=== PATIENT | female | born 1985 | race Caucasian/White ===

== ENCOUNTER 2017-01-28 19:12 | Emergency (ER) | payer BC ==
--- NOTE | 2017-01-28 20:57 | ERNOTE ---
ER Female HPI Date of Service: 01/28/17 Stated Complaint: HEAVY VAGINAL BLEEDING Presenting Symptoms: vaginal bleeding Time Seen by Provider: 01/28/17 20:18 Source: patient Exam Limitations: no limitations Immunizations: IMMUNIZATION HX Immunizations Up to Date Yes History of Influenza Vaccine Yes Hx Pneumococcal Vaccination No Allergies/Adverse Reactions: Allergies ciprofloxacin [From Cipro] Allergy (Verified 01/28/17 19:56) Itching ciprofloxacin HCl [From Cipro] Allergy (Verified 01/28/17 19:56) lactose Adverse Reaction (Verified 01/28/17 19:56) Home Medications: HOME MEDICATIONS Pnv95/Iron Fum/Folic Acid [ Caplet] 1 each PO DAILY 12/30/15 [Last Taken Unknown] - History of Present Illness Narrative: Pt. comes in with c/o heavy vaginal bleeding since yesterday. Pt. states taht she has been bleeding through a tampon and a pad every hour except the last two hours she has been bleeding through a tampon every 15 minutes. Pt. states that she has dizziness that worsened throughout the day. Pt. denies any CP, SOB, but states that she had a depo injection in June and had regular periods in November and december but the her LMP was december 18. Review of Systems - Review of Systems Constitutional: Present: weakness, malaise EYE: Present: no symptoms reported ENT: Present: no symptoms reported Respiratory: Present: no symptoms reported. Absent: shortness of breath, cough , wheezing Cardiology: Present: no symptoms reported. Absent: chest pain, palpitations, edema Gastrointestinal/Abdominal: Present: abdominal pain - Suprapubic B adnexal. Absent: nausea, vomiting, diarrhea Genitourinary: Present: pain - suprapubic, B adnexal Musculoskeletal: Present: no symptoms reported. Absent: back pain, neck pain, joint pain Skin: Present: no symptoms reported Neurological: Present: headache, dizziness/light-headedness. Absent: weakness, numbness, tingling All Other Systems: All systems neg except as marked - Patient's Past Medical History Patient History - Medical: No pertinent hx Patient History - Cardiac/Respiratory: No pertinent hx Patient History - Cancer: No Hx of Cancer Patient History - Surgical Procedures: Appendectomy, Colonoscopy, Patient History - Other: None LMP (Calendar): 08/14/15 - Social History Living Situations: home Abuse History: No History of abuse Psych History: No pertinent hx Smoking Status: Never smoker Alcohol Use: none Drug Use: none - Immunizations Immunizations Up to Date: Yes Hx Pneumococcal Vaccination: No History of Influenza Vaccine: Yes Physical Exam - Physical Exam General Appearance: Present: wd/wn, alert, no apparent distress Eye Exam: Normal inspection: bilateral, PERRL: bilateral, EOMI: bilateral Ears, Nose, Throat: Present: normal ENT inspection, normal pharynx Neck: Present: normal inspection, nontender. Absent: lymphadenopathy (R), lymphadenopathy (L) Respiratory: Present: no respiratory distress, normal breath sounds, no accessory muscle use, chest nontender, lungs clear Cardiovascular/Chest: Present: regular rate, rhythm, no murmur, normal peripheral pulses Gastrointestinal/Abdominal: Present: normal bowel sounds, tenderness - suprapubic Back Exam: Present: normal inspection, normal range of motion, no CVA tenderness , no vertebral tenderness Extremity Exam: Present: normal inspection, non-tender, normal range of motion, no edema Neurological Exam: Present: alert, oriented, normal mood/affect, no motor/ sensory deficits, hand sprayer II-XII nml as tested, normal cerebellar test Skin Exam: Present: normal color, warm/dry. Absent: pallor, skin rash ED Progress - Date and Time Seen: Date and Time: 01/28/17 23:[address] Arrington and will try methergin and cytotec and will call in 2 hours if her bleeding does not stop. - Results and Orders Patient's Lab Results:: I have reviewed the patient's lab results. - Vital Signs Patient's Vital Signs:: I have reviewed the patient's vital signs. Vital Signs: Vital Signs 01/28/17 19:52 Temperature 37 C Pulse Rate 75 Respiratory 18 Rate Blood Pressure 147/82 O2 Sat by Pulse 100 Oximetry - CT/Ultrasound CT/Ultrasound Narrative: US with evidence of large clot in her uterus and blood. - Progress/Reassessment Chief Complaint: Genitourinary Problem Progress:: Unchanged - Transfer of Care Physician Sign Out: Pamella Llanes Receiving Physician: Stuart Puga Expected Disposition: Discharge Additional Notes: awaiting reults of medications. Departure Clinical Impression: Menorrhagia Qualifiers: Menorrahagia type: with irregular cycle Qualified Code(s): N92.1 - Excessive and frequent menstruation with irregular cycle - Departure Referrals: Nilay Burgos MD [Primary Care Provider] -
--- OUTSIDE RECORDS SUMMARY | 2017-01-28 21:06 | XMS REPORT | Summary of Care ---
:1985 Author Organization [facility] Address [address] [place] [address] Care Team Providers Name Role Phone Teena Chau Primary Care Physician Encounter Date(s): 11/26/16 - 11/26/16 [facility] [address] [place] [address] [facility] Discharge Diagnosis: Viral illness Discharge Disposition: 01 Discharged to Home or Self Care Attending Physician: BARB De León Referring Physician: BARB De León Vital Signs Most recent to oldest [Reference Range]: 1 Temperature Temporal Artery [36.0-38.0 DegC] 36.4 DegC (11/26/16 10:08 AM) Peripheral Pulse Rate [60-100 bpm] 92 bpm (11/26/16 10:08 AM) Respiratory Rate [12-20 br/min] 15 br/min (11/26/16 10:08 AM) SpO2 99 % (11/26/16 10:08 AM) SpO2 Location Right hand (11/26/16 10:08 AM) Blood Pressure [90-130/60-90 mmHg] 110/80mmHg (11/26/16 10:08 AM) Mean Arterial Pressure, Cuff 90 mmHg (11/26/16 10:08 AM) Most recent to oldest [Reference Range]: 1 Weight Dosing 55.6 kg (11/26/16 10:08 AM) Weight Measured 55.6 kg (11/26/16 10:08 AM) Problem List Condition Effective Dates Status Health Status Informant Hyperemesis gravidarum(Confirmed) Active IBS (irritable bowel Active syndrome)(Confirmed) Allergies, Adverse Reactions, Alerts Substance Reaction Severity Status ciprofloxacin Active Medications Diclegis 10 mg-10 mg oral delayed release tablet 2 tab(s), Oral, HS, may also take 1 tablet in am if needed, # 90 tab(s), 1 Refill(s), Start Date: 11/14/15 8:42:00 FLIGHT INSTRUCTOR, Pharmacy: [facility] [id number] Special Instructions: may also take 1 tablet in am if needed Start Date: 11/14/15 Status: OrderedDiclegis 10 mg-10 mg oral delayed release tablet 2 tab(s), Oral, HS, # 60 tab(s), 0 Refill(s), Start Date: 10/27/15 11:08:00 FLIGHT INSTRUCTOR , Samples: Darren noel, 1323-1, 10/13/15 Start Date: 10/27/15 Stop Date: 11/14/15 Status: DiscontinuedDiflucan 200 mg oral tablet 1 tab(s), Oral, Daily, # 5 tab(s), 0 Refill(s), Start Date: 04/27/15 11:16:00 CDT, Pharmacy: [facility] [id number] Start Date: 04/27/15 Stop Date: 05/13/15 Status: Completedlansoprazole 30 mg oral delayed release capsule 1 cap(s), Oral, Daily, # 30 cap(s), 5 Refill(s), Start Date: 04/20/16 15:37:00 CDT, Pharmacy: [facility] [id number] Start Date: 04/20/16 Status: Orderedminocycline 100 mg oral tablet 1 tab(s), Oral, BID, # 30 tab(s), 0 Refill(s), Start Date: 05/13/15 15:35:00 CDT Start Date: 05/13/15 Stop Date: 10/27/15 Status: DiscontinuedMiraLax gm, Oral, Daily, 0 Refill(s), Start Date: 05/16/15 14:19:00 CDT Start Date: 05/16/15 Status: OrderedpredniSONE 20 mg oral tablet 2 tab(s), Oral, BID, # 28 tab(s), 0 Refill(s), Pharmacy: [facility] [id number] Start Date: 06/21/14 Stop Date: 08/13/14 Status: CompletedPrevacid 30 mg oral delayed release capsule 1 cap(s), Oral, Daily, # 30 cap(s), 11 Refill(s), Start Date: 07/28/15 10:12:00 CDT, Pharmacy: [facility] [id number] Start Date: 07/28/15 Status: OrderedSeptra DS 800 mg-160 mg oral tablet 1 tab(s), Oral, BID, X 10 days, # 20 tab(s), 0 Refill(s), Start Date: 04/27/15 11:16:00 CDT, Pharmacy: [facility] [id number] Start Date: 04/27/15 Stop Date: 05/07/15 Status: CompletedSuprep Bowel Prep Kit oral liquid 1 bottles, Oral, BID, as directed, # 1 kit(s), 0 Refill(s), Start Date: 10:48:00 CDT, Pharmacy: [facility] [id number] Special Instructions: as directed Start Date: 05/30/15 Stop Date: 06/17/15 Status: CompletedZithromax Z-Donte 250 mg oral tablet See Instructions, 2 tablets once today, then one tablet daily for 4 days., # 6 tab(s), 0 Refill(s), Start Date: 08/13/14 10:15:00 CDT, Pharmacy: [facility] [id number] Special Instructions: 2 tablets once today, then one tablet daily for 4 days. Start Date: 08/13/14 Stop Date: 04/27/15 Status: CompletedZofran 4 mg oral tablet 1 tab(s), Oral, q6hr, PRN nausea/vomiting, # 30 tab(s), 1 Refill(s), Start Date : 10/23/15 10:24:00 FLIGHT INSTRUCTOR, Pharmacy: [facility] [id number] Start Date: 10/23/15 Status: OrderedZofran 4 mg oral tablet 1 tab(s), Oral, q6hr, PRN nausea/vomiting, # 30 tab(s), 1 Refill(s), Start Date : 10/23/15 10:23:00 FLIGHT INSTRUCTOR Start Date: 10/23/15 Stop Date: 10/23/15 Status: Discontinued Results No data available for this section Immunizations No data available for this section Procedures Procedure Date Related Diagnosis Body Site Breath Test Lactose1 09/20/15 Breath Test Fructose2 09/02/15 Breath Test Bacteria Lactulose3 07/22/15 Colonoscopy4 06/13/15 Esophagogastroduodenoscopy5 06/13/15 1auto-populated from documented surgical [id number] from documented surgical [id number] from documented surgical [id number] from documented surgical [id number] from documented surgical case Social History No data available for this section Assessment and Plan No data available for this section
[2017-01-28 21:07] LABS: Hematocrit 35.7 % (37.0-47.0); Hemoglobin 11.9 gm/dL (12.5-16.0); Mean Cell Volume 89.5 fl (78-100); Mean Corpuscular Hemoglobin 29.8 pg (27-31); Mean Corpuscular Hgb Conc 33.3 g/dl (32-36); Neutrophil # 3.3 K/mm3 (1.3-6.0); Neutrophil % 52.6 % (42-75.0); Platelet Count 169 K/mm3 (150-450); Red Blood Count 3.99 M/mm3 (4.2-5.4); White Blood Count 6.3 K/mm3 (4.0-10.5)
[2017-01-28 21:22] LABS: Albumin * 3.9 gm/dl (3.4-5.0); Anion Gap 14.4 mmol/L (6.8-13.8); BUN/Creatinine Ratio 22.4 (9.0-21.6); Bilirubin, Total 0.2 mg/dL (0.0-1.1); Ca. Corrected For Albumin 8.4 mg/dL (8.4-10.2); Calcium * 8.6 mg/dL (7.9-10.9); Carbon Dioxide 25.4 mmol/L (24-32.6); Potassium 3.8 mmol/L (3.4-4.6); Total Protein 7.4 gm/dL (6.2-8.2)
[2017-01-28 22:16] LABS: Urine Bilirubin Negative (NEGATIVE); Urine Blood Negative /ul (NEGATIVE); Urine Ketone Negative (NEGATIVE); Urine Nitrite Negative (NEGATIVE); Urine Protein Negative (NEGATIVE); Urine Urobilinogen Normal (NORMAL)
[2017-01-28 22:24] LABS: Urine Appearance Clear; Urine Bacteria 2+; Urine Color Yellow; Urine RBC None Seen /hpf (0-5); Urine WBC 0-5 /hpf (0-5)
[2017-01-28] MEDS ORDERED: NORMAL SALINE 1,000 ML IV ONE (23:25)
[2017-01-28] MEDS ORDERED: METHYLERGONOVINE MALEATE 0.2 MG/ML AMPUL ONE (23:53)
[2017-01-28] MEDS ORDERED: MISOPROSTOL 100 MCG TABLET ONE (23:57)
[2017-01-29] MEDS ORDERED: MISOPROSTOL 200 MCG TABLET RC ONE
[2017-01-29] MEDS ORDERED: METHYLERGONOVINE MALEATE 0.2 MG/ML AMPUL IM ONE (00:15)
[2017-01-29] MEDS ORDERED: ONDANSETRON HCL/PF 2 MG/ML VIAL IV ONE (00:41)
[2017-01-29] MEDS ORDERED: ONDANSETRON HCL/PF 2 MG/ML VIAL ONE (00:42)
[2017-01-29 03:57] VITALS: BP 107/75
== END 2017-01-29 03:46 | disposition home or self-care (01) ==
LOC: ER 19:12
DX: N92.1 Excessive and frequent menstruation with irregular cycle (principal)

== ENCOUNTER 2017-01-29 15:06 | Day surgery (SDC) | payer BC ==
[~2017-01-29 15:06] MED LIST: RINGER'S SOLUTION,LACTATED 1,000 ML IV PRN
[2017-01-29] MEDS: RINGER'S SOLUTION,LACTATED 1,000 ML IV ONE (16:01)
[2017-01-29] MEDS ORDERED: RINGER'S SOLUTION,LACTATED 1,000 ML IV ONE (16:01)
--- NOTE | 2017-01-29 16:52 | OR ---
Operative Report - Dictated Report Narrative: DATE OF PROCEDURE: 01/29/2017 INDICATION: 31-year-old female with severe menometrorrhagia unresponsive to conservative therapy PREOPERATIVE DIAGNOSIS: Severe Menometrorrhagia unresponsive to conservative therapy POSTOPERATIVE DIAGNOSIS: Same PROCEDURE: Hysteroscopy, D&C SURGEON: Redd Huertas D.O. DYE MAKER: None ANESTHESIA: IV sedation, ESTIMATED BLOOD LOSS: minimal URINE OUTPUT: not recorded FLUID REPLACEMENT: 300 mL FINDINGS: 8 week size uterus with progesterone effect endometrium. No intrauterine lesions or contour abnormalities. SPECIMEN(S): Endometrial curettings TECHNIQUE: The patient was taken to the operating room and placed in dorsal lithotomy position after adequate IV sedation was obtained. After sterile prep and drape, the anterior lip of the cervix was grasped with a long Allis clamp. The uterus sounded to 8 cm. The 5 mm hysteroscope was inserted into the uterine cavity with findings as noted above. Using the curet, the entire uterine cavity was curettaged. The hysteroscope was reinserted noting thorough sampling of the entire uterine cavity. Sponge, lap, instrument, needle count correct x 2. DISPOSITION: The patient was transferred to the post anesthesia care unit in good condition.
[2017-01-29] MEDS ORDERED: IBUPROFEN 800 MG TABLET ONE (17:58)
[2017-01-29] MEDS ORDERED: IBUPROFEN 800 MG TABLET PO ONE ×2 (18:00→18:04)
[2017-01-29 19:01] VITALS: BP 98/50
== END 2017-01-29 15:07 | disposition home or self-care (01) ==
LOC: AMB 15:06
PROVIDERS: ATTEND Obstetrics & Gynecology
PROC: 0UDB8ZZ Extraction of Endometrium, Via Natural or Artificial Opening Endoscopic (ICD-10-PCS; principal; 2017-01-29 16:00)
DX: N92.1 Excessive and frequent menstruation with irregular cycle (principal); D64.9 Anemia, unspecified; Z68.20 Body mass index [BMI] 20.0-20.9, adult